=== PATIENT | male | born 1990 | race Caucasian/White ===

== ENCOUNTER 2023-03-20 23:13 | Emergency (ER) | payer OTHER ==
[~2023-03-20] VITALS: Ht 180.3 cm; Wt 81.6 kg
[2023-03-21 01:45] VITALS: O2SAT 100
[2023-03-21] MEDS ORDERED: KETOROLAC TROMETHAMINE 30 MG/ML VIAL IV STA (01:53)
[2023-03-21] MEDS ORDERED: SODIUM CHLORIDE 0.9% 1000ML 1,000 ML IV ONE (02:00)
[2023-03-21] MEDS ORDERED: DICYCLOMINE HCL 20 MG/2 ML VIAL IM ONE (02:00)
[2023-03-21 02:06] LABS: BASOPHILS % 0.6 % (0.0-1.0); EOSINOPHILS # (AUTO) 0.2 (0.0-0.4); EOSINOPHILS % 3.2 % (0.0-6.0); HEMATOCRIT 40.6 % (38.2-49.6); HEMOGLOBIN 13.6 g/dL (14.0-18.0); LYMPHOCYTES # (AUTO) 1.2 (1.0-3.2); LYMPHOCYTES % 23.7 % (18.0-39.1); MEAN CORPUSCULAR HEMOGLOBIN 31.1 pg (28-32); MEAN CORPUSCULAR HGB CONC 33.5 g/dL (31-35); MEAN CORPUSCULAR VOLUME 92.7 fL (81-99); MONOCYTES # (AUTO) 0.7 (0.2-0.8); MONOCYTES % 13.1 % (4.4-11.3); PLATELET COUNT 335 x10e3/uL (140-360); RED BLOOD COUNT 4.38 x10e6/uL (4.3-5.7); RED CELL DISTRIBUTION WIDTH 12.4 % (11.7-14.4)
[2023-03-21 02:26] LABS: ALBUMIN 3.1 g/dL (3.5-5.0); ALBUMIN/GLOBULIN RATIO 0.8 (0.8-2.0); ANION GAP 12.8 mmol/L (8-16); CREATININE, SERUM 0.76 mg/dL (0.72-1.25); POTASSIUM 3.8 mmol/L (3.5-5.1)
== END 2023-03-21 02:15 | disposition left against medical advice (07) ==
LOC: ER 23:29
DX: R10.30 Lower abdominal pain, unspecified (principal); R19.7 Diarrhea, unspecified
CPT/HCPCS: 36415; 80053; 83690; 85025; 93005